=== PATIENT | female | born 1965 | race African-American/Black ===

== ENCOUNTER 2019-02-27 11:32 | Emergency (ER) | payer OTHER ==
[~2019-02-27] VITALS: Ht 165.1 cm; Wt 59.1 kg
[2019-02-27 11:34] VITALS: Ht 165.1 cm; Wt 59.1 kg
[2019-02-27] MEDS ORDERED: LEVETIRACETAM 1000 MG (PMX) 100 ML IVPB STA (11:39)
[2019-02-27] MEDS ORDERED: LORAZEPAM 2 MG INJ IV ONE (12:00)
[2019-02-27] MEDS ORDERED: AMLO5TAB4 PO (12:22)
[2019-02-27] MEDS ORDERED: LEVE-5 PO (12:23)
--- NOTE | 2019-02-27 13:14 | ERD ---
ER Documentation Chief Complaint Chief Complaint SEIZURE X 10 MINUTES WITH HISTORY OF SEIZURES. ON DILANTIN HPI This is a 53-year-old female with a history of seizures who presents to the emergency room for evaluation of a seizure. The patient is here with her who is giving the majority of the history. He states that the patient does take Dilantin 100 mg twice daily. He states that she did take her normal dose last night however did not take her morning dose this morning. They state they went to the daughter's graduation and the patient felt like she was going to have a seizure. The patient did take her Dilantin however shortly after taking it the patient suffered a seizure which the describes as a tonic- clonic seizure. 911 was called and the patient was transported to the ER via EMS. The patient has no complaints at this time ROS All systems reviewed and are negative except as per history of present illness. Medications Home Meds Reported Medications Levetiracetam* (Keppra*) 500 Mg Tablet, 500 MG PO BID, TAB 02/27/19 Amlodipine Besylate* (Norvasc*) 5 Mg Tablet, 5 MG PO DAILY, TAB 02/27/19 Allergies Allergies: Coded Allergies: No Known Allergy (Unverified , 02/27/19) PMhx/Soc History of Surgery: Yes () Anesthesia Reaction: No Hx Neurological Disorder: Yes (SZ) Hx Respiratory Disorders: No Hx Cardiac Disorders: No Hx Psychiatric Problems: No Hx Miscellaneous Medical Probl: No Hx Alcohol Use: Yes Hx Substance Use: No Hx Tobacco Use: No Smoking Status: Never smoker Physical Exam Vitals Vital Signs Date Temp Pulse Resp B/P (MAP) Pulse Ox O2 O2 Flow FiO2 Time Delivery Rate 02/27/19 99.0 85 20 133/96 98 11:34 (108) Physical Exam Const: No acute distress Head: Atraumatic Eyes: Normal Conjunctiva ENT: Normal External Ears, Nose and Mouth. Neck: Full range of motion. No meningismus. Resp: Clear to auscultation bilaterally Cardio: Regular rate and rhythm, no murmurs Abd: Soft, non tender, non distended. Normal bowel sounds Skin: No petechiae or rashes Back: No midline or flank tenderness Ext: No cyanosis, or edema Neur: Awake and alert Psych: Normal Mood and Affect Result Diagram: 02/27/19 1222 02/27/19 1222 Results 24 hrs Laboratory Tests Test 02/27/19 12:22 White Blood Count 5.6 10^3/ul Red Blood Count 3.31 10^6/ul Hemoglobin 11.1 g/dl Hematocrit 32.7 % Mean Corpuscular Volume 98.8 fl Mean Corpuscular Hemoglobin 33.5 pg Mean Corpuscular Hemoglobin Concent 33.9 g/dl Red Cell Distribution Width 12.7 % Platelet Count 115 10^3/UL Mean Platelet Volume 8.0 fl Immature Granulocytes % 0.400 % Neutrophils % 87.6 % Lymphocytes % 6.1 % Monocytes % 5.7 % Eosinophils % 0.0 % Basophils % 0.2 % Nucleated Red Blood Cells % 0.0 /100WBC Immature Granulocytes # 0.020 10^3/ul Neutrophils # 4.9 10^3/ul Lymphocytes # 0.3 10^3/ul Monocytes # 0.3 10^3/ul Eosinophils # 0.0 10^3/ul Basophils # 0.0 10^3/ul Nucleated Red Blood Cells # 0.0 10^3/ul Sodium Level 141 mmol/L Potassium Level 3.9 mmol/L Chloride Level 99 mmol/L Carbon Dioxide Level 30 mmol/L Anion Gap 12 Blood Urea Nitrogen 11 mg/dl Creatinine 0.61 mg/dl Est Glomerular Filtrat Rate mL/min > 60 mL/min Glucose Level 139 mg/dl Bedside Glucose 140 mg/dL Calcium Level 9.0 mg/dl Current Medications Medications Dose Sig/Vivi Start Time Status Last (Trade) Ordered Route PRN Stop Time Admin Dose Reason Admin 100 ml @ ONCE STAT 02/27/19 DC 02/27/19 Levetiracetam 400 mls/hr IVPB 11:39 12:04 02/27/19 11:53 Lorazepam 1 mg ONCE ONCE 02/27/19 DC 02/27/19 (Ativan) IV 12:00 12:04 02/27/19 12:01 Procedures/MDM This 43-year-old female presents to the ER for evaluation of seizure. The patient does have a history of seizures, and is on Dilantin however did not take her dose this morning. She was at her daughter's graduation and suffered a seizure which was described as a tonic-clonic seizure. On my eval the patient was afebrile, she was slightly postictal. She was given IV Keppra and Ativan. Lab work was obtained which is not significantly abnormal. On my reevaluation the patient is alert and oriented to person place and time with no focal neurological deficits. The patient likely suffered a breakthrough seizure and will be discharged at this time with instructions to continue taking her Dilantin as prescribed. Departure Diagnosis: Primary Impression: Seizure disorder Additional Impression: Breakthrough seizure Condition: Fair LANA BRIONES DO February 27, 2019 13:14
[2019-02-27 14:01] VITALS: BP 121/78; PULSE 79; RESP 18
== END 2019-02-27 14:02 | disposition home or self-care (01) ==
LOC: E/R 11:32
DX: G40.909 Epilepsy, unspecified, not intractable, without status epilepticus (principal); R40.2142 Coma scale, eyes open, spontaneous, at arrival to emergency department; R40.2362 Coma scale, best motor response, obeys commands, at arrival to emergency department; R40.2252 Coma scale, best verbal response, oriented, at arrival to emergency department
CPT/HCPCS: 36415; 80048; 82962; 85025; 96374; 96375; 99284; J1953; J2060